=== PATIENT | female | born 1975 | race Two or more races ===

== ENCOUNTER 2021-10-11 08:11 | Day surgery (SDC) | payer OTHER ==
[~2021-10-11 08:11] MED LIST: AMITRIPTYLINE H25 MG PO; BACLOFEN10 MG PO; COZAAR25 MG PO; FOLIC ACID0.8 M1 PO; LIPITOR20 MG PO; METFORMIN HCL500 M3 PO; METHOTREXATE2.5 MG PO; PROTONIX40 MG PO; REGLAN5 MG/5 ML PO
== END 2021-10-11 13:35 | disposition home or self-care (01) ==
LOC: CIR.AMB 08:11
PROVIDERS: ATTEND Orthopaedic Surgery
DX: M77.01 Medial epicondylitis, right elbow (principal); G56.21 Lesion of ulnar nerve, right upper limb; Z20.822 Contact with and (suspected) exposure to COVID-19

== ENCOUNTER 2023-04-24 08:22 | Day surgery (SDC) | payer OTHER ==
[~2023-04-24] VITALS: Ht 157.5 cm; Wt 77.1 kg
== END 2023-04-24 16:25 | disposition home or self-care (01) ==
LOC: CIR.AMB 08:22
PROVIDERS: ATTEND Orthopaedic Surgery
DX: M77.12 Lateral epicondylitis, left elbow (principal); M24.822 Other specific joint derangements of left elbow, not elsewhere classified; M66.232 Spontaneous rupture of extensor tendons, left forearm; Z20.822 Contact with and (suspected) exposure to COVID-19

== ENCOUNTER 2023-06-11 15:26 | Emergency (ER) | payer OTHER ==
[~2023-06-11] VITALS: Ht 157.5 cm; Wt 77.1 kg
[2023-06-11] MEDS ORDERED: MOBIC7.5 MG PO (15:58)
== END 2023-06-11 18:02 | disposition home or self-care (01) ==
LOC: ER 15:26
DX: M54.9 Dorsalgia, unspecified (principal); V43.52XA Car driver injured in collision with other type car in traffic accident, initial encounter; Y93.89 Activity, other specified; Y92.413 State road as the place of occurrence of the external cause